=== PATIENT | male | born 1970 | race Caucasian/White ===

== ENCOUNTER 2023-06-22 15:24 | Emergency (ER) | payer BC, SELFPAY ==
--- NOTE | ~2023-06-22 | XR_ITS ---
EXAM: XR foot RT min 3V DATE: 06/22/2023 15:56 HISTORY: rt dorsal foot pain s/p injury 2 days ago . COMPARISON: None available. FINDINGS: Normal mineralization. No fracture or dislocation. No lytic or blastic lesion. Scattered d egenerative changes. Achilles and plantar enthesopathy. No erosion or periosteal change. Forefoot sof t tissue swelling. IMPRESSION: No acute osseous finding in the right foot. Reviewed, dictated and finalized at location K.
--- NOTE | ~2023-06-22 | XR_ITS ---
EXAM: XR knee RT min 4V DATE: 06/22/2023 15:56 HISTORY: rt knee pain s/p injury 2 days ago . COMPARISON: None available. FINDINGS: Normal mineralization. Linear ossific density projecting adjacent to the tibial spine, see n only in the frontal view. No lytic or blastic lesion. Joint spaces are maintained. No erosion or pe riosteal change. Soft tissues within normal limits. Large joint effusion. IMPRESSION: Small possible avulsion fracture fragment adjacent to the tibial spine. Large joint effus ion. Consider conservative management and MRI of the knee for further evaluation. Reviewed, dictated and finalized at location K. IMPRESSION: Small possible avulsion fracture fragment adjacent to the tibial sp ine. Large joint effusion. Consider conservative management and MRI of the knee for further evaluation.
[2023-06-22 15:37] VITALS: BP 144/82; PULSE 72; RESP 16; TEMP 37.3; O2SAT 99
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
== END 2023-06-22 17:06 | disposition home or self-care (01) ==
PROVIDERS: Emergency Provider Nurse Practitioner; PCP Internal Medicine
DX: S90.31XA Contusion of right foot, initial encounter (principal); S86.911A Strain of unspecified muscle(s) and tendon(s) at lower leg level, right leg, initial encounter; V18.0XXA Pedal cycle driver injured in noncollision transport accident in nontraffic accident, initial encounter; F17.210 Nicotine dependence, cigarettes, uncomplicated
CPT/HCPCS: 73564; 73630; 99214; G0463; L1830